=== PATIENT | male | born 1970 | race Hispanic/Latino ===

== ENCOUNTER 2020-11-20 15:49 | Emergency (ER) | payer SELFPAY ==
[2020-11-20] MEDS ORDERED: Acetaminophen 500 MG TAB ONE (16:13)
[2020-11-20] MEDS ORDERED: diphenhydrAMINE 12.5 MG/5 ML UDCUP ONE ×2 (16:14→16:17)
[2020-11-20] MEDS ORDERED: Metoclopramide HCl 10 MG/2 ML VIAL ONE (16:14)
[2020-11-20] MEDS ORDERED: diphenhydrAMINE 50 MG/ML VIAL ONE ×2 (16:15→16:17)
[2020-11-20 16:26] LABS: #Eosinphils 0.2 thou/uL (0.0-0.7); #Monocytes 0.8 thou/uL (0.11-0.59); #Neutrophils 4.4 thou/uL (1.40-6.50); %Basophils 0.5 % (0.0-1.0); %Eosinophils 2.1 % (0.0-10.0); %Monocytes 9.1 % (0.0-10.0); %Neutrophils 52.3 % (42.0-75.0); Hemoglobin 15.1 g/dL (14.0-18.0); Mean Corpuscular HGB CONC 34.9 g/dL (32.0-36.0); Mean Corpuscular Volume 88.8 fL (78.0-98.0); Mean Platelet Volume 7.6 fL (7.4-10.4); Platelet Count 208 thou/uL (130-400); RBC Distribution Width 12.9 % (11.5-14.5); Red Blood Cell (RBC) Count 4.88 mill/uL (4.70-6.10); White Blood Cell (WBC) Count 8.4 thou/uL (4.8-10.8)
[2020-11-20 16:42] LABS: ALT (SGPT) 48 U/L (8-55); AST (SGOT) 29 U/L (5-34); Albumin 4.2 g/dL (3.5-5.0); Alkaline Phosphatase 137 U/L (40-110); Anion Gap 14 mmol/L (10-20); BUN (Urea Nitrogen) 12 mg/dL (8.4-25.7); Bilirubin, Total 0.4 mg/dL (0.2-1.2); Calc. Creatinine Clearance 0 mL/min (70-130); Calcium 9.1 mg/dL (7.8-10.44); Carbon Dioxide 25 mmol/L (22-29); Chloride 106 mmol/L (98-107); Glucose 120 mg/dL (70-105); Potassium 3.6 mmol/L (3.5-5.1); Protein, Total 7.2 g/dL (6.0-8.3); Sodium 141 mmol/L (136-145)
== END 2020-11-20 19:11 | disposition home or self-care (01) ==
LOC: ERS 15:49
DX: R51.9 Headache, unspecified (principal); H11.32 Conjunctival hemorrhage, left eye; E78.5 Hyperlipidemia, unspecified
CPT/HCPCS: 70450; 80053; 85025; 96365; 96375; J1200; J2765; Q0163

== ENCOUNTER 2024-02-10 15:22 | Inpatient (IN) | payer MEDICAID, SELFPAY ==
[~2024-02-10 15:22] MED LIST: Heparin 25,000 units/D5W 500 ML ONE; Iopamidol 370 76% 100 ML VIAL ONE; fentaNYL 50 mcg/mL 1 mL Vial ONE
[2024-02-10] MEDS ORDERED: Rocuronium Bromide 10 MG/ML (10ML VIAL) ONE (16:22)
[2024-02-10] MEDS ORDERED: Lidocaine 1% PF 5 ML VIAL ONE (16:22)
[2024-02-10] MEDS ORDERED: Fentanyl 250 MCG/5 ML VIAL ONE (16:22)
[2024-02-10] MEDS ORDERED: PROPOFOL 20 ML ONE (16:22)
[2024-02-10] MEDS ORDERED: Calcium Chloride 1 GM/10 ML Abboject SYRINGE ONE ×2 (16:32→16:49)
[2024-02-10] MEDS ORDERED: Norepinephrine 4 MG/4 ML VIAL ONE (16:32)
[2024-02-10] MEDS ORDERED: Vasopressin 20 UNITS/ML VIAL ONE (16:32)
[2024-02-10] MEDS ORDERED: Etomidate 40 MG (20 mL) VIAL ONE (16:32)
[2024-02-10] MEDS ORDERED: DOPamine 400 MG/D5W 250 ML 0 ML ONE (16:32)
[2024-02-10] MEDS ORDERED: NOREPINEPHRINE 8 MG/250 ML-D5W 250 ML ONE (16:47)
[2024-02-10] MEDS ORDERED: Vancomycin 1 GM VIAL ONE (16:49)
[2024-02-10] MEDS ORDERED: Aminocaproic Acid 5 GM/20 ML VIAL ONE (16:49)
[2024-02-10] MEDS ORDERED: Potassium Chloride 60 mEq (30 mL) VIAL ONE (16:49)
[2024-02-10] MEDS ORDERED: Cardioplegic Soln 1,000 ML BAG ONE (16:49)
[2024-02-10] MEDS ORDERED: Lidocaine 2% PF 100 mg/5 ml Syringe ONE (16:49)
[2024-02-10] MEDS ORDERED: Thrombin 5000 UNITS/5 ML VIAL ONE (16:49)
[2024-02-10] MEDS ORDERED: Protamine Sulfate 250 MG/25 ML VIAL ONE (16:49)
[2024-02-10] MEDS ORDERED: Heparin 5,000 UNITS/ML VIAL ONE (16:49)
[2024-02-10] MEDS ORDERED: Magnesium 5 GM/10 ML VIAL ONE (16:49)
[2024-02-10] MEDS ORDERED: Heparin 30,000 units/30 ml VIAL ONE (16:49)
[2024-02-10] MEDS ORDERED: Sodium Bicarb 50 mEq/50 ML VIAL ONE (16:49)
[2024-02-10] MEDS ORDERED: Papaverine 60 MG/2 ML VIAL ONE (16:49)
[2024-02-10] MEDS ORDERED: Mannitol 12.5 GM/50 ML ONE (16:49)
[2024-02-10] MEDS ORDERED: Esmolol 100 MG/10 ML VIAL ONE (16:52)
[2024-02-10] MEDS ORDERED: CEFAZOLIN 1 GM VIAL ONE (16:53)
[2024-02-10] MEDS ORDERED: Midazolam HCl 2 mg/2 ml Vial ONE ×2 (16:55→18:28)
[2024-02-10] MEDS ORDERED: PHENYLEPHRINE-NS 100 MCG/ML 10 ML SYRINGE ONE (17:04)
[2024-02-10] MEDS ORDERED: fentaNYL PF 100 MCG/2 ML SYRINGE ONE (18:28)
[2024-02-10] MEDS ORDERED: Bisacodyl 5 MG TAB PO PRN (21:37)
[2024-02-10] MEDS ORDERED: Bisacodyl 10 MG SUPP PR PRN (21:37)
[2024-02-10] MEDS ORDERED: hydrALAZINE 20 MG/ML VIAL SLOW IVP PRN (21:37)
[2024-02-10] MEDS ORDERED: Promethazine HCl 25 MG/ML VIAL IM PRN (21:37)
[2024-02-10] MEDS ORDERED: Morphine 2 MG/ML VIAL SLOW IVP PRN (21:37)
[2024-02-10] MEDS ORDERED: Ipratropium/Albuterol 3 ML NEB NEB PRN (21:37)
[2024-02-10] MEDS ORDERED: Mag-Al 1200 mg/1200 mg/30 ML UDCUP PO PRN (21:37)
[2024-02-10] MEDS ORDERED: Albumin 5% 12.5 GM (250 mL) BOT IVPB PRN (21:37)
[2024-02-10] MEDS ORDERED: HYDROcodone/Acetaminophen 5/325 mg Tablet PO PRN (21:37)
[2024-02-10] MEDS ORDERED: fentaNYL 50 mcg/mL 1 mL Vial SLOW IVP PRN ×2 (21:37)
[2024-02-10] MEDS ORDERED: Ondansetron PF 4 MG/2 ML Vial IVP PRN (21:37)
[2024-02-10 21:52] LABS: #Basophils 0.05 10x3/uL (0.0-0.2); %Basophils 0.2 % (0.0-1.0); %Eosinophils 0.4 % (0.0-10.0); %Monocytes 7.6 % (0.0-10.0); %Neutrophils 81.8 % (42.0-75.0); Hematocrit 36.7 % (42.0-52.0); Mean Corpuscular HGB CONC 35.4 g/dL (32.0-36.0); Mean Corpuscular Hemoglobin 29.2 pg (27.0-31.0); Mean Corpuscular Volume 82.5 fL (78.0-98.0); Mean Platelet Volume 9.7 fL (7.4-10.4); Platelet Count 197 10x3/uL (130-400); RBC Distribution Width 13.6 % (11.5-14.5); Red Blood Cell (RBC) Count 4.45 mill/uL (4.70-6.10)
[2024-02-10] MEDS ORDERED: Dextrose 50% Abboject 50 ML SYRINGE SLOW IVP PRN (22:00)
[2024-02-10] MEDS ORDERED: Dextrose 5% in Water 1,000 ML IV PRN (22:00)
[2024-02-10] MEDS ORDERED: Glucagon 1 MG/ML KIT SC PRN (22:00)
[2024-02-10 22:05] LABS: INR-International Normal Ratio 1.3; PTT 27.9 sec (22.9-36.1); Prothrombin Time 16.3 sec (12.0-14.7)
[2024-02-10] MEDS: Insulin Regular, Human 100 UNIT/ML 10 ML VIAL SC PRN (22:05)
[2024-02-10] MEDS: Magnesium 2 GM/50 ML(in water) 2 GM in Premix 1 BAG IVPB SCH (22:05)
[2024-02-10] MEDS: Sodium Chloride 0.9% 1,000 ML IV SCH (22:07)
[2024-02-10] MEDS: Albumin 5% 12.5 GM (250 mL) BOT IVPB PRN (22:14)
[2024-02-10 22:19] VITALS: BMI 28.0
[2024-02-10 22:21] LABS: Anion Gap 13 mmol/L (10-20); BUN (Urea Nitrogen) 9 mg/dL (8.4-25.7); Calc. Creatinine Clearance 139 mL/min (70-130); Calcium 6.7 mg/dL (7.8-10.44); Carbon Dioxide 18 mmol/L (22-29); Chloride 113 mmol/L (98-107); Estimated GFR 109; Glucose 179 mg/dL (70-105); Potassium 3.8 mmol/L (3.5-5.1); Sodium 140 mmol/L (136-145)
[2024-02-10] MEDS: Potassium Chloride 20 MEQ (100 mL) BAG IVPB PRN (22:30)
[2024-02-10] MEDS: NOREPINEPHRINE 8 MG/250 ML-D5W 250 ML IVPB PRN (23:02)
[2024-02-10] MEDS: Calcium Gluc 4.6 MEQ/10 ML (100 MG/ML) SLOW IVP SCH (23:17)
[2024-02-10] MEDS: Calcium Chloride 1 GM/10 ML Abboject SYRINGE IVP SCH (23:18)
[2024-02-10] MEDS: Ketorolac Tromethamine 30 MG (1 mL) VIAL IVP SCH (23:34)
[2024-02-11] MEDS: Acetaminophen 325 MG TAB PO SCH ×2 (00:58→18:26)
[2024-02-11] MEDS: Aspirin Chewable 81 MG TAB PO SCH (00:58)
[2024-02-11] MEDS: Morphine 4 MG/ML VIAL SLOW IVP PRN (01:00)
[2024-02-11] MEDS: CEFAZOLIN 2 GM in Sodium Chloride 0.9% 100 ML IVPB SCH (01:28)
[2024-02-11 04:02] LABS: Hematocrit 31.4 % (42.0-52.0); Hemoglobin 10.9 g/dL (14.0-18.0)
[2024-02-11 04:28] LABS: Anion Gap 10 mmol/L (10-20); BUN (Urea Nitrogen) 10 mg/dL (8.4-25.7); Calc. Creatinine Clearance 128 mL/min (70-130); Calcium 7.9 mg/dL (7.8-10.44); Carbon Dioxide 19 mmol/L (22-29); Chloride 111 mmol/L (98-107); Estimated GFR 106; Glucose 159 mg/dL (70-105); Potassium 4.3 mmol/L (3.5-5.1); Sodium 136 mmol/L (136-145)
[2024-02-11] MEDS: Acetaminophen 650 MG Suppository PR SCH (05:02)
[2024-02-11 08:20] LABS: Actual Bicarbonate (HCO3a) 20.9 mEq/L (22-28); Base Excess (BEa) -2.7 mEq/L (-2.0 to +3.0); CO2 Tension 32.3 mmHg (35.0-45.0); Calcium, Ionized (arterial) 1.08 mmol/L (1.12-1.30); Carboxyhemoglobin (COHb) 0.4 gm% (0.0-3.0); Hematocrit-ABG 34 % (42.0-52.0); Hemoglobin (Hb) 11.5 g/dL (14.0-18.0); O2 Tension (PaO2), arterial 94.3 mmHg (80.0-100.0); Potassium - ABG Lab 4.17 mmol/L (3.70-5.30); pH, Arterial 7.429 (7.35-7.45)
[2024-02-11 08:21] LABS: ALV-art Gradient 150.525 mmHg (0-20); Puncture Site Arterial Line
[2024-02-11] MEDS: Magnesium 2 GM/50 ML(in water) 2 GM in Premix 1 BAG IVPB SCH (08:52)
[2024-02-11] MEDS: Aspirin 325 MG TAB PO SCH (08:52)
[2024-02-11] MEDS: Famotidine/PF 20 mg/2ml Vial SLOW IVP SCH (08:52)
[2024-02-11] MEDS: HYDROcodone/Acetaminophen 5/325 mg Tablet PO PRN (10:27)
[2024-02-11] MEDS ORDERED: HYDROcodone/Acetaminophen 5/325 mg Tablet PO PRN (17:20)
[2024-02-11] MEDS ORDERED: HYDROcodone/Acetaminophen 10/325 mg Tablet PO PRN (17:42)
[2024-02-11 18:09] VITALS: BMI 28.1
[2024-02-11] MEDS: Atorvastatin Calcium 20 MG TAB PO SCH (21:54)
[2024-02-12] MEDS: Furosemide 20 MG TAB PO SCH (10:10)
[2024-02-12] MEDS: Meclizine HCl 25 MG TAB PO SCH (13:07)
[2024-02-12 17:16] LABS: Base Excess (BEa) -0.4 mEq/L (-2.0 to +3.0); CO2 Tension 28.5 mmHg (35.0-45.0); Calcium, Ionized (arterial) 1.07 mmol/L (1.12-1.30); Carboxyhemoglobin (COHb) 0.3 gm% (0.0-3.0); Hematocrit-ABG 29 % (42.0-52.0); pH, Arterial 7.505 (7.35-7.45)
[2024-02-12 17:23] LABS: ALV-art Gradient 62.405 mmHg (0-20); Puncture Site LRA
[2024-02-12 18:24] LABS: #Basophils Less than 0.03 10x3/uL (0.0-0.2); #Eosinphils Less than 0.03 10x3/uL (0.0-0.7); %Basophils 0.2 % (0.0-1.0); %Eosinophils 0.2 % (0.0-10.0); %Lymphocytes 13.1 % (21.0-51.0); %Monocytes 8.3 % (0.0-10.0); %Neutrophils 77.4 % (42.0-75.0); Hematocrit 25.7 % (42.0-52.0); Hemoglobin 8.8 g/dL (14.0-18.0); Mean Corpuscular HGB CONC 34.2 g/dL (32.0-36.0); Mean Corpuscular Hemoglobin 29.8 pg (27.0-31.0); Mean Corpuscular Volume 87.1 fL (78.0-98.0); Mean Platelet Volume 9.8 fL (7.4-10.4); Platelet Count 123 10x3/uL (130-400); RBC Distribution Width 13.8 % (11.5-14.5); Red Blood Cell (RBC) Count 2.95 mill/uL (4.70-6.10)
[2024-02-12] MEDS: Furosemide 20 MG (2 mL) VIAL SLOW IVP SCH (18:28)
[2024-02-12 18:45] LABS: Anion Gap 9 mmol/L (10-20); BUN (Urea Nitrogen) 18 mg/dL (8.4-25.7); Calc. Creatinine Clearance 95 mL/min (70-130); Calcium 7.9 mg/dL (7.8-10.44); Carbon Dioxide 24 mmol/L (22-29); Chloride 104 mmol/L (98-107); Estimated GFR 82; Glucose 129 mg/dL (70-105); Magnesium 2.4 mg/dL (1.6-2.6); Phosphorus 1.9 mg/dL (2.3-4.7); Potassium 3.9 mmol/L (3.5-5.1); Sodium 133 mmol/L (136-145)
[2024-02-13 06:14] LABS: ALT (SGPT) 23 U/L (8-55); AST (SGOT) 71 U/L (5-34); Albumin 2.6 g/dL (3.5-5.0); Alkaline Phosphatase 70 U/L (40-110); Anion Gap 10 mmol/L (10-20); BUN (Urea Nitrogen) 20 mg/dL (8.4-25.7); Bilirubin, Total 0.9 mg/dL (0.2-1.2); Calc. Creatinine Clearance 117 mL/min (70-130); Calcium 7.9 mg/dL (7.8-10.44); Carbon Dioxide 21 mmol/L (22-29); Cardiac Risk 3.8 (Less than 4.5); Chloride 111 mmol/L (98-107); Cholesterol 138 mg/dl (< 200 Desired); Estimated GFR 103; Globulin 2.9 g/dL (2.4-3.5); Glucose 97 mg/dL (70-105); HDL Cholesterol 36 mg/dL (>60 Neg Risk); LDL Cholesterol, Calculated 74 mg/dL; Potassium 3.7 mmol/L (3.5-5.1); Protein, Total 5.5 g/dL (6.0-8.3); Sodium 138 mmol/L (136-145); Triglycerides 139 mg/dL (Less than 150)
[2024-02-13 10:59] LABS: O2 Tension (PaO2), arterial 51.7 mmHg (80.0-100.0)
[2024-02-13] MEDS: Furosemide 20 MG (2 mL) VIAL SLOW IVP SCH ×2 (11:52→14:56)
[2024-02-13 12:41] LABS: Actual Bicarbonate (HCO3a) 20.8 mEq/L (22-28); Analyzer IN Cardio OR; Base Excess (BEa) -4.5 mEq/L (-2.0 to +3.0); Carboxyhemoglobin (COHb) 0.6 gm% (0.0-3.0); Hematocrit-ABG 43 % (42.0-52.0); Hemoglobin (Hb) 14.5 g/dL (14.0-18.0); O2 Tension (PaO2), arterial 222.4 mmHg (80.0-100.0); Potassium - ABG Lab 3.67 mmol/L (3.70-5.30); pH, Arterial 7.344 (7.35-7.45)
[2024-02-13 12:41] LABS: Actual Bicarbonate (HCO3a) 19.1 mEq/L (22-28); Analyzer IN Cardio OR; Base Excess (BEa) -5.6 mEq/L (-2.0 to +3.0); Calcium, Ionized (arterial) 1.05 mmol/L (1.12-1.30); Carboxyhemoglobin (COHb) 0.6 gm% (0.0-3.0); Hematocrit-ABG 39 % (42.0-52.0); Hemoglobin (Hb) 13.3 g/dL (14.0-18.0); O2 Tension (PaO2), arterial 252.9 mmHg (80.0-100.0); Potassium - ABG Lab 3.75 mmol/L (3.70-5.30); pH, Arterial 7.355 (7.35-7.45)
[2024-02-13 12:42] LABS: Actual Bicarbonate (HCO3a) 18.6 mEq/L (22-28); Analyzer IN Cardio OR; Base Excess (BEa) -6.7 mEq/L (-2.0 to +3.0); CO2 Tension 36.1 mmHg (35.0-45.0); Calcium, Ionized (arterial) 0.99 mmol/L (1.12-1.30); Hematocrit-ABG 34 % (42.0-52.0); Hemoglobin (Hb) 11.4 g/dL (14.0-18.0); O2 Tension (PaO2), arterial 252.1 mmHg (80.0-100.0); Potassium - ABG Lab 3.56 mmol/L (3.70-5.30); pH, Arterial 7.329 (7.35-7.45)
[2024-02-13 12:42] LABS: Actual Bicarbonate (HCO3a) 25.7 mEq/L (22-28); Analyzer IN Cardio OR; Base Excess (BEa) 0.6 mEq/L (-2.0 to +3.0); CO2 Tension 43.2 mmHg (35.0-45.0); Calcium, Ionized (arterial) 0.87 mmol/L (1.12-1.30); Carboxyhemoglobin (COHb) 0.3 gm% (0.0-3.0); Hematocrit-ABG 31 % (42.0-52.0); Hemoglobin (Hb) 10.6 g/dL (14.0-18.0); O2 Tension (PaO2), arterial 339.2 mmHg (80.0-100.0); pH, Arterial 7.392 (7.35-7.45)
[2024-02-13 12:42] LABS: Actual Bicarbonate (HCO3a) 22.7 mEq/L (22-28); Analyzer IN Cardio OR; Base Excess (BEa) -2.4 mEq/L (-2.0 to +3.0); CO2 Tension 40.1 mmHg (35.0-45.0); Calcium, Ionized (arterial) 0.92 mmol/L (1.12-1.30); Carboxyhemoglobin (COHb) 0.3 gm% (0.0-3.0); Hematocrit-ABG 31 % (42.0-52.0); Hemoglobin (Hb) 10.5 g/dL (14.0-18.0); O2 Tension (PaO2), arterial 321.6 mmHg (80.0-100.0); Potassium - ABG Lab 5.14 mmol/L (3.70-5.30)
[2024-02-13] MEDS: Guaifenesin DM 100-10/5 ML UDCUP PO PRN (20:52)
[2024-02-13] MEDS: Metoprolol Tartrate 25 MG TAB PO SCH (20:53)
[2024-02-14 12:39] LABS: #Basophils Less than 0.03 10x3/uL (0.0-0.2); %Basophils 0.1 % (0.0-1.0); %Eosinophils 2.6 % (0.0-10.0); %Lymphocytes 14.4 % (21.0-51.0); %Monocytes 8.8 % (0.0-10.0); %Neutrophils 72.9 % (42.0-75.0); Hematocrit 26.2 % (42.0-52.0); Hemoglobin 8.8 g/dL (14.0-18.0); Mean Corpuscular HGB CONC 33.6 g/dL (32.0-36.0); Mean Corpuscular Hemoglobin 29.4 pg (27.0-31.0); Mean Corpuscular Volume 87.6 fL (78.0-98.0); Platelet Count 186 10x3/uL (130-400); RBC Distribution Width 13.9 % (11.5-14.5); Red Blood Cell (RBC) Count 2.99 mill/uL (4.70-6.10)
[2024-02-14 13:08] LABS: Anion Gap 15 mmol/L (10-20); BUN (Urea Nitrogen) 16 mg/dL (8.4-25.7); Calc. Creatinine Clearance 123 mL/min (70-130); Calcium 8.5 mg/dL (7.8-10.44); Carbon Dioxide 23 mmol/L (22-29); Chloride 108 mmol/L (98-107); Estimated GFR 104; Glucose 157 mg/dL (70-105); Potassium 4.3 mmol/L (3.5-5.1); Sodium 142 mmol/L (136-145)
[2024-02-14] MEDS: Furosemide 40 MG (4 mL) VIAL SLOW IVP SCH ×3 (14:38→22:32)
[2024-02-15 07:56] VITALS: BP 104/68; TEMP 98.6
== END 2024-02-15 11:15 | disposition home or self-care (01) | DRG 232 ==
LOC: CCL 15:22 → CCU 21:37 → 2NO 02-11 18:23
PROVIDERS: ADMIT Internal Medicine Cardiovascular Disease; ATTEND Internal Medicine Cardiovascular Disease
PROC: 02100Z9 Bypass Coronary Artery, One Artery from Left Internal Mammary, Open Approach (ICD-10-PCS; principal; 2024-02-10)
PROC: 02C03ZZ Extirpation of Matter from Coronary Artery, One Artery, Percutaneous Approach (ICD-10-PCS; 2024-02-10)
PROC: 021109W Bypass Coronary Artery, Two Arteries from Aorta with Autologous Venous Tissue, Open Approach (ICD-10-PCS; 2024-02-10)
PROC: 06BQ4ZZ Excision of Left Saphenous Vein, Percutaneous Endoscopic Approach (ICD-10-PCS; 2024-02-10)
PROC: 4A023N7 Measurement of Cardiac Sampling and Pressure, Left Heart, Percutaneous Approach (ICD-10-PCS; 2024-02-10)
PROC: 02L70CK Occlusion of Left Atrial Appendage with Extraluminal Device, Open Approach (ICD-10-PCS; 2024-02-10)
PROC: 5A1221Z Performance of Cardiac Output, Continuous (ICD-10-PCS; 2024-02-10)
PROC: B2111ZZ Fluoroscopy of Multiple Coronary Arteries using Low Osmolar Contrast (ICD-10-PCS; 2024-02-10)
PROC: B2151ZZ Fluoroscopy of Left Heart using Low Osmolar Contrast (ICD-10-PCS; 2024-02-10)
PROC: 5A1223Z Performance of Cardiac Pacing, Continuous (ICD-10-PCS; 2024-02-10)
PROC: 4A033R1 Measurement of Arterial Saturation, Peripheral, Percutaneous Approach (ICD-10-PCS; 2024-02-10)
PROC: 3E033XZ Introduction of Vasopressor into Peripheral Vein, Percutaneous Approach (ICD-10-PCS; 2024-02-10)
DX: I21.19 ST elevation (STEMI) myocardial infarction involving other coronary artery of inferior wall (principal); I42.9 Cardiomyopathy, unspecified; J90 Pleural effusion, not elsewhere classified; J98.11 Atelectasis; I25.10 Atherosclerotic heart disease of native coronary artery without angina pectoris; I95.9 Hypotension, unspecified
CPT/HCPCS: 33210; 36140; 36415; 36416; 36600; 71045; 80061; 82805; 83735; 84100; 86850; 86900; 86901; 87071; 92941; 92973; 93458; 93798; 94003; 94150; A4311; A4648; C1751; C1769; C1887; C1894; C9606; J0612; J0690; J1265; J1644; J1815; J1885; J1940; J2001; J2150; J2250; J2270; J2440; J2704; J2720; J3010; J3370; J3475; J3480; J3490; J7050; P9045; Q9967; S0017; S0028

== ENCOUNTER 2024-02-28 20:21 | Observation (INO) | payer MEDICAID, SELFPAY ==
[~2024-02-28 20:21] MED LIST changes: -Heparin 25,000 units/D5W 500 ML ONE; -Iopamidol 370 76% 100 ML VIAL ONE; +Iopamidol-370 76% 500 ML MDV (1 ML CHARGE) ONE; -fentaNYL 50 mcg/mL 1 mL Vial ONE
[2024-02-28 20:52] LABS: #Basophils Less than 0.03 10x3/uL (0.0-0.2); %Basophils 0.2 % (0.0-1.0); %Eosinophils 1.1 % (0.0-10.0); %Lymphocytes 9.8 % (21.0-51.0); %Monocytes 0.8 % (0.0-10.0); %Neutrophils 86.4 % (42.0-75.0); Hematocrit 36.7 % (42.0-52.0); Hemoglobin 12.1 g/dL (14.0-18.0); Mean Corpuscular Hemoglobin 27.9 pg (27.0-31.0); Mean Corpuscular Volume 84.8 fL (78.0-98.0); Mean Platelet Volume 8.9 fL (7.4-10.4); Platelet Count 428 10x3/uL (130-400); RBC Distribution Width 13.8 % (11.5-14.5); Red Blood Cell (RBC) Count 4.33 mill/uL (4.70-6.10)
[2024-02-28 21:07] LABS: ALT (SGPT) 46 U/L (8-55); AST (SGOT) 31 U/L (5-34); Albumin 3.2 g/dL (3.5-5.0); Alkaline Phosphatase 144 U/L (40-110); Anion Gap 14 mmol/L (10-20); BUN (Urea Nitrogen) 16 mg/dL (8.4-25.7); Bilirubin, Total 0.6 mg/dL (0.2-1.2); Calc. Creatinine Clearance 0 mL/min (70-130); Calcium 8.8 mg/dL (7.8-10.44); Carbon Dioxide 22 mmol/L (22-29); Chloride 108 mmol/L (98-107); Estimated GFR 100; Globulin 3.8 g/dL (2.4-3.5); Glucose 128 mg/dL (70-105); Potassium 3.8 mmol/L (3.5-5.1); Sodium 140 mmol/L (136-145)
[2024-02-28 21:24] LABS: Troponin I 0.223 ng/mL (< 0.028)
[2024-02-29 01:58] VITALS: BMI 26.9
[2024-02-29] MEDS ORDERED: Ondansetron ODT 4 MG TAB PO PRN (02:03)
[2024-02-29] MEDS ORDERED: Ondansetron PF 4 MG/2 ML Vial IVP PRN (02:03)
[2024-02-29] MEDS ORDERED: Acetaminophen 650 MG/20.3 ML UDCUP PO PRN (02:03)
[2024-02-29] MEDS ORDERED: Acetaminophen 650 MG Suppository PR PRN (02:03)
[2024-02-29 02:29] LABS: SARS-CoV-2 E Target Negative; SARS-CoV-2 N2 Target Negative; SARS-CoV-2 NAA Rapid Test Not Detected (NotDetected); SARS-CoV-2 RdRP gene Negative
[2024-02-29 05:33] LABS: Troponin I 0.267 ng/mL (< 0.028)
[2024-02-29] MEDS: Polyethylene Glycol 3350 17 GM Packet PO SCH (09:19)
[2024-02-29] MEDS: Aspirin 325 MG TAB PO SCH (09:20)
[2024-02-29] MEDS: Acetaminophen 325 MG TAB PO SCH (09:20)
[2024-02-29] MEDS: Furosemide 20 MG TAB PO SCH (09:21)
[2024-02-29] MEDS: Atorvastatin Calcium 40 MG TAB PO SCH (09:21)
[2024-02-29] MEDS: Famotidine 20 MG TAB PO SCH (09:21)
[2024-02-29] MEDS: Metoprolol Tartrate 25 MG TAB PO SCH (09:21)
[2024-02-29] MEDS: Famotidine/PF 20 mg/2ml Vial SLOW IVP SCH (09:22)
[2024-02-29] MEDS ORDERED: Mineral Oil ENEMA PR SCH (10:30)
[2024-02-29] MEDS: Lactulose 20 GM (30 mL) UDCUP PO SCH ×2 (10:58→13:15)
[2024-02-29] MEDS: Milk Of Magnesia 30 ML UDCUP PO SCH (11:00)
[2024-02-29 11:53] VITALS: BP 98/56; TEMP 98.2
== END 2024-02-29 14:11 | disposition home or self-care (01) ==
LOC: ERS 20:21 → 2SW 23:54
PROVIDERS: ADMIT Student in an Organized Health Care Education/Training Program; ATTEND Internal Medicine Critical Care Medicine
DX: I21.3 ST elevation (STEMI) myocardial infarction of unspecified site (principal); I25.10 Atherosclerotic heart disease of native coronary artery without angina pectoris; E78.5 Hyperlipidemia, unspecified; Z95.1 Presence of aortocoronary bypass graft; Z79.82 Long term (current) use of aspirin; Z79.899 Other long term (current) drug therapy
CPT/HCPCS: 36415; 71045; 71275; 80053; 83690; 83880; 84484; 85025; 93005; G0378; Q9967; U0002